=== PATIENT | female | born 1960 | race African-American/Black ===

== ENCOUNTER 2017-07-12 14:44 | Inpatient (IN) | payer MEDICAID ==
[~2017-07-12] VITALS: Ht 162.6 cm; Wt 62.9 kg
[~2017-07-12 14:44] MED LIST: ALBU8HFA IH; ARIP400S IM; BUPR-93 PO; DSS100 PO; OMEP20 PO
[2017-07-12] MEDS ORDERED: ZOLPIDEM TARTRATE 10 MG TABLET PO PRN (16:15)
[2017-07-12] MEDS ORDERED: QUEtiapine FUMARATE 100 MG TABLET PO PRN (16:15)
[2017-07-12 16:47] VITALS: BP 107/74
[2017-07-12 17:40] VITALS: BP 141/89
[2017-07-12] MEDS ORDERED: ALBUTEROL SULFATE HFA 90 MCG/PUFF 8 GM INHALER IH PRN (20:30)
[2017-07-13] MEDS ORDERED: MAGNESIUM HYDROXIDE SUSPENSION 30 ML UDCUP PO PRN (05:00)
[2017-07-13] MEDS ORDERED: ACETAMINOPHEN 325 MG TABLET PO PRN (05:00)
[2017-07-13] MEDS ORDERED: BENZOCAINE/MENTHOL LOZENGE MM PRN (05:00)
[2017-07-13] MEDS ORDERED: LOPERAMIDE HCL 2 MG CAPSULE PO PRN (05:00)
[2017-07-13] MEDS ORDERED: ONDANSETRON HCL 4 MG TABLET PO PRN (05:00)
[2017-07-13] MEDS ORDERED: CloNIDine HCL 0.1 MG TABLET PO PRN (05:00)
[2017-07-13] MEDS ORDERED: IBUPROFEN 600 MG TABLET PO PRN (05:00)
[2017-07-13] MEDS ORDERED: BACITRACIN 28.4 GM OINTMENT TP PRN (05:00)
[2017-07-13] MEDS ORDERED: PETROLATUM,WHITE 71 GM JELLY TP PRN (05:00)
[2017-07-13] MEDS ORDERED: MAG HYDROX/AL HYDROX/SIMETH ES 30 ML SUSPENSION UDCUP PO PRN (05:00)
[2017-07-13 06:29] VITALS: BP 111/77
[2017-07-13] MEDS ORDERED: GuaiFENesin/D-METHORPHAN/PHENYLEPH 5 ML LIQUID ORAL.SYG PO PRN (07:00)
[2017-07-13] MEDS ORDERED: FLUTICASONE PROPIONATE 50 MCG/SPRAY 16 GM NASAL SPRAY NASAL PRN (07:00)
[2017-07-13 08:31] VITALS: BP 106/59
[2017-07-13 08:42] LABS: BASOPHILS # (AUTO) 0.05 K/uL (0.00-0.20); BASOPHILS % (AUTO) 1.4 % (0.0-2.0); EOSINOPHILS # (AUTO) 0.05 K/uL (0.00-0.70); EOSINOPHILS % (AUTO) 1.36 % (1.0-6.0); HEMATOCRIT 42.1 % (36-46); HEMOGLOBIN 13.9 g/dL (12.0-16.0); LYMPHOCYTES # (AUTO) 1.6 K/uL (1.0-4.8); LYMPHOCYTES % (AUTO) 44.1 % (22.0-44.0); MEAN CORPUSCULAR HEMOGLOBIN 32.1 pg (26.0-34.0); MEAN CORPUSCULAR HGB CONC 33.1 G/dL (31.0-37.0); MEAN CORPUSCULAR VOLUME 97 fL (80-100); MONOCYTES # (AUTO) 0.3 K/uL (0.1-1.0); MONOCYTES % (AUTO) 6.8 % (2.0-9.0); NEUTROPHILS # (AUTO) 1.7 K/uL (1.8-7.7); NEUTROPHILS % (AUTO) 46.3 % (40.0-70.0); PLATELET COUNT (AUTO) 303 K/uL (150-450); RED BLOOD CELL COUNT(AUTO) 4.34 MIL/uL (4.00-5.20); RED CELL DISTRIBUTION WIDTH 14.9 % (11.5-14.5)
[2017-07-13 08:49] LABS: HEMOGLOBIN A1C 5.8 % (4.5-6.2)
[2017-07-13 09:02] LABS: ALANINE AMINOTRANSFERASE 22 U/L (12-78); ALBUMIN 3.6 g/dL (3.4-5.0); ALKALINE PHOSPHATASE 91 U/L (46-116); ANION GAP 5 mmol/L (8-16); ASPARTATE AMINOTRANSFERASE 20 U/L (15-37); BILIRUBIN,TOTAL 0.5 mg/dL (0.1-1.0); CALCIUM, TOTAL 9.5 mg/dL (8.8-10.5); CARBON DIOXIDE 32 mmol/L (22-29); CHLORIDE 104 mmol/L (98-107); CHOL/HDL RATIO 2.3 (3.9-5.7); CHOLESTEROL 158 mg/dL (131-200); CREATININE 0.88 mg/dL (0.60-1.30); FREE T4 (FREE THYROXINE) 0.89 ng/dL (0.76-1.46); GLOMERULAR FILTR. RATE CALC > 60 mL/min (>60); GLUCOSE,RANDOM 69 mg/dL (70-110); HDL CHOLESTEROL 70 mg/dL (40-60); LDL CHOL (CALC.) 78 mg/dL (0-130); POTASSIUM 3.6 mmol/L (3.5-5.1); SODIUM SERUM 141 mmol/L (136-145); THYROID STIMULATING HORMONE 1.58 uIU/mL (0.36-3.74); TOTAL PROTEIN, SERUM 8.6 g/dL (6.4-8.2); TRIGLYCERIDES 51 mg/dL (15-150); UREA NITROGEN, BLOOD 12 mg/dL (7-18)
[2017-07-13] MEDS: DiphenhydrAMINE HCL 25 MG CAPSULE PO PRN (09:21)
[2017-07-13] MEDS: LORazepam 2 MG TABLET PO PRN ×2 (09:21→17:29)
[2017-07-13] MEDS: OMEPRAZOLE 20 MG CAPSULE PO SCH (09:21)
[2017-07-13] MEDS: CHOLECALCIFEROL (VIT D3) 1,000 UNITS TABLET PO SCH (09:22)
[2017-07-13] MEDS: DOCUSATE SODIUM 100 MG CAPSULE PO SCH (09:22)
[2017-07-13 16:41] VITALS: BP 103/65
[2017-07-14 06:30] VITALS: BP 104/60
[2017-07-14] MEDS: DOCUSATE SODIUM 100 MG CAPSULE PO SCH (08:38)
[2017-07-14] MEDS: OMEPRAZOLE 20 MG CAPSULE PO SCH (08:38)
[2017-07-14] MEDS: CHOLECALCIFEROL (VIT D3) 1,000 UNITS TABLET PO SCH (08:39)
[2017-07-14] MEDS: LORazepam 2 MG TABLET PO PRN (08:45)
[2017-07-14 08:47] VITALS: BP 126/79
[2017-07-14 16:27] VITALS: BP 126/78
[2017-07-14] MEDS ORDERED: ARIPiprazole 10 MG TABLET PO SCH (18:45)
[2017-07-15 06:00] VITALS: BP 124/68
[2017-07-15] MEDS: CHOLECALCIFEROL (VIT D3) 1,000 UNITS TABLET PO SCH (08:36)
[2017-07-15] MEDS: OMEPRAZOLE 20 MG CAPSULE PO SCH (08:36)
[2017-07-15] MEDS: DOCUSATE SODIUM 100 MG CAPSULE PO SCH (08:36)
[2017-07-15] MEDS: BuPROPion HCL XL 150 MG ER TABLET PO SCH (08:38)
[2017-07-15] MEDS: DiphenhydrAMINE HCL 25 MG CAPSULE PO PRN (08:38)
[2017-07-15] MEDS: LORazepam 2 MG TABLET PO PRN (08:39)
[2017-07-15 16:11] VITALS: BP 115/67
[2017-07-15] MEDS: SODIUM CHLORIDE 0.65% 44 ML NASAL SPRAY NASAL SCH (16:25)
[2017-07-15] MEDS: OLANZapine 10 MG TABLET PO SCH (20:26)
[2017-07-16] MEDS: OMEPRAZOLE 20 MG CAPSULE PO SCH ×2 (09:00→09:32)
[2017-07-16] MEDS: LORATADINE 10 MG TABLET PO SCH (09:32)
[2017-07-16] MEDS: SODIUM CHLORIDE 0.65% 44 ML NASAL SPRAY NASAL SCH ×2 (09:32→16:48)
[2017-07-16] MEDS: DOCUSATE SODIUM 100 MG CAPSULE PO SCH (09:32)
[2017-07-16] MEDS: CHOLECALCIFEROL (VIT D3) 1,000 UNITS TABLET PO SCH (09:32)
[2017-07-16] MEDS: BuPROPion HCL XL 150 MG ER TABLET PO SCH (09:32)
[2017-07-16] MEDS: GuaiFENesin SR 600 MG ER TABLET PO SCH (09:32)
[2017-07-16] MEDS: MINERAL OIL/PETROLATUM 120 GM CREAM TP SCH (09:33)
[2017-07-16 18:20] VITALS: BP 138/81
[2017-07-16] MEDS: OLANZapine 10 MG TABLET PO SCH (20:40)
[2017-07-17 05:02] VITALS: BP 122/66
[2017-07-17] MEDS: DOCUSATE SODIUM 100 MG CAPSULE PO SCH (08:20)
[2017-07-17] MEDS: SODIUM CHLORIDE 0.65% 44 ML NASAL SPRAY NASAL SCH ×2 (08:20→16:27)
[2017-07-17] MEDS: OMEPRAZOLE 20 MG CAPSULE PO SCH (08:20)
[2017-07-17] MEDS: BuPROPion HCL XL 150 MG ER TABLET PO SCH (08:20)
[2017-07-17] MEDS: MINERAL OIL/PETROLATUM 120 GM CREAM TP SCH (08:21)
[2017-07-17] MEDS: GuaiFENesin SR 600 MG ER TABLET PO SCH (08:21)
[2017-07-17] MEDS: LORATADINE 10 MG TABLET PO SCH (08:21)
[2017-07-17] MEDS: CHOLECALCIFEROL (VIT D3) 1,000 UNITS TABLET PO SCH (08:21)
[2017-07-17 08:23] LABS: AMPHET/METH SCREEN,URINE NEGATIVE (NEGATIVE); BARBITURATE SCREEN, URINE NEGATIVE (NEGATIVE); BENZODIAZEPINES SCREEN,URINE NEGATIVE (NEGATIVE); CANNABINOID SCREEN,URINE POSITIVE (NEGATIVE); COCAINE SCREEN,URINE NEGATIVE (NEGATIVE); METHADONE SCREEN, URINE NEGATIVE (NEGATIVE); OPIATE SCREEN,URINE NEGATIVE (NEGATIVE); PHENCYCLIDINE SCREEN,URINE NEGATIVE (NEGATIVE)
[2017-07-17 09:04] VITALS: BP 124/83
[2017-07-17 09:22] LABS: APPEARANCE,URINE CLEAR (CLEAR); BILIRUBIN,URINE NEGATIVE (NEGATIVE); GLUCOSE, URINE (UA) NEGATIVE (NEGATIVE); KETONES,URINE NEGATIVE (NEGATIVE); LEUKOCYTE ESTERASE ,URINE SMALL (NEGATIVE); NITRATE,URINE NEGATIVE (NEGATIVE); OCCULT BLOOD,URINE TRACE (NEGATIVE); PROTEIN,URINE NEGATIVE (NEGATIVE); UROBILINOGEN,URINE 0.2 mg/dL (<=1.0)
[2017-07-17 09:35] LABS: BACTERIA,URINE None Seen /HPF (None Seen); SQUAMOUS EPITHELIAL CELL,UR Few /LPF (None Seen); WBC,URINE None Seen /HPF (0-5)
[2017-07-17] MEDS ORDERED: BuPROPion HCL XL 150 MG ER TABLET PO ONE (12:30)
[2017-07-17 16:21] VITALS: BP 118/74
[2017-07-17] MEDS: OLANZapine 10 MG TABLET PO SCH (20:07)
[2017-07-18] MEDS: SODIUM CHLORIDE 0.65% 44 ML NASAL SPRAY NASAL SCH ×2 (09:00→17:17)
[2017-07-18] MEDS: MINERAL OIL/PETROLATUM 120 GM CREAM TP SCH (09:00)
[2017-07-18 09:05] VITALS: BP 111/65
[2017-07-18] MEDS: DOCUSATE SODIUM 100 MG CAPSULE PO SCH (09:43)
[2017-07-18] MEDS: CHOLECALCIFEROL (VIT D3) 1,000 UNITS TABLET PO SCH (09:44)
[2017-07-18] MEDS: OMEPRAZOLE 20 MG CAPSULE PO SCH (09:44)
[2017-07-18] MEDS: BuPROPion HCL XL 150 MG ER TABLET PO SCH (09:44)
[2017-07-18] MEDS: LORATADINE 10 MG TABLET PO SCH (09:45)
[2017-07-18] MEDS: GuaiFENesin SR 600 MG ER TABLET PO SCH (09:57)
[2017-07-18 16:25] VITALS: BP 108/69
[2017-07-18] MEDS: LORazepam 2 MG TABLET PO PRN (17:28)
[2017-07-18] MEDS: OLANZapine 10 MG TABLET PO SCH (20:24)
[2017-07-19 06:40] VITALS: BP_SYST 117; BP_DIAS 72; BP_DIAS 93
[2017-07-19] MEDS: CHOLECALCIFEROL (VIT D3) 1,000 UNITS TABLET PO SCH (08:15)
[2017-07-19] MEDS: LORATADINE 10 MG TABLET PO SCH (08:16)
[2017-07-19] MEDS: DOCUSATE SODIUM 100 MG CAPSULE PO SCH (08:16)
[2017-07-19] MEDS: OMEPRAZOLE 20 MG CAPSULE PO SCH (08:16)
[2017-07-19] MEDS: BuPROPion HCL XL 150 MG ER TABLET PO SCH (08:16)
[2017-07-19] MEDS: SODIUM CHLORIDE 0.65% 44 ML NASAL SPRAY NASAL SCH (08:17)
[2017-07-19] MEDS: MINERAL OIL/PETROLATUM 120 GM CREAM TP SCH (08:17)
[2017-07-19 08:43] VITALS: BP 132/79
[2017-07-19] MEDS ORDERED: LORA10TA7 PO (09:02)
[2017-07-19] MEDS ORDERED: VITAD1000 PO (09:02)
[2017-07-19] MEDS ORDERED: OLAN10TA3 PO (09:02)
== END 2017-07-19 13:30 | disposition home or self-care (01) | DRG 750 ==
LOC: B3A 16:42 → B2S 07-17 20:58
DX: F20.0 Paranoid schizophrenia (principal); R45.851 Suicidal ideations; J44.9 Chronic obstructive pulmonary disease, unspecified; J30.9 Allergic rhinitis, unspecified; G47.00 Insomnia, unspecified; K21.9 Gastro-esophageal reflux disease without esophagitis; K59.00 Constipation, unspecified; M54.5 Low back pain; F17.200 Nicotine dependence, unspecified, uncomplicated; E55.9 Vitamin D deficiency, unspecified; Z91.5 Personal history of self-harm; Z88.8 Allergy status to other drugs, medicaments and biological substances; Z79.899 Other long term (current) drug therapy
CPT/HCPCS: 80307; 83036; 84439; 84443

== ENCOUNTER 2018-01-16 18:13 | Inpatient (IN) | payer MEDICAID ==
[~2018-01-16] VITALS: Ht 157.5 cm; Wt 68.0 kg
[~2018-01-16 18:13] MED LIST changes: -ALBU8HFA IH; -ARIP400S IM; +BUPR-47 PO; +OLAN10TA20 PO; +OLAN10TA3 PO; +VITAD1000 PO
[2018-01-16] MEDS ORDERED: ZOLPIDEM TARTRATE 10 MG TABLET PO PRN (19:15)
[2018-01-16] MEDS ORDERED: LORazepam 2 MG TABLET PO PRN (19:15)
[2018-01-16 19:16] VITALS: BP 113/78
[2018-01-16 19:55] VITALS: BP 123/83
[2018-01-16] MEDS ORDERED: PNEUMOCOCCAL VACCINE POLYVALENT 0.5 ML VIAL [PPSV23] IM ONE (20:00)
[2018-01-17 06:45] VITALS: BP 111/74
[2018-01-17 08:33] VITALS: BP 122/81
[2018-01-17 16:11] VITALS: BP 116/87
[2018-01-17] MEDS: OLANZapine 7.5 MG TABLET PO SCH (20:39)
[2018-01-17] MEDS ORDERED: LOPERAMIDE HCL 2 MG CAPSULE PO PRN (20:45)
[2018-01-17] MEDS ORDERED: MAG HYDROX/AL HYDROX/SIMETH ES 30 ML SUSPENSION UDCUP PO PRN (20:45)
[2018-01-17] MEDS ORDERED: PETROLATUM,WHITE 71 GM JELLY TP PRN (20:45)
[2018-01-17] MEDS ORDERED: ALBUTEROL SULFATE HFA 90 MCG/PUFF 8 GM INHALER IH PRN (20:45)
[2018-01-17] MEDS ORDERED: MAGNESIUM HYDROXIDE SUSPENSION 30 ML UDCUP PO PRN (20:45)
[2018-01-17] MEDS ORDERED: ONDANSETRON HCL 4 MG TABLET PO PRN (20:45)
[2018-01-17] MEDS ORDERED: IBUPROFEN 400 MG TABLET PO PRN (20:45)
[2018-01-17] MEDS ORDERED: CloNIDine HCL 0.1 MG TABLET PO PRN (20:45)
[2018-01-17] MEDS ORDERED: DOCUSATE SODIUM 100 MG CAPSULE PO PRN (20:45)
[2018-01-18 05:33] VITALS: BP 120/85
[2018-01-18] MEDS: NICOTINE 14 MG/24 HOUR PATCH TD SCH (09:24)
[2018-01-18] MEDS: BuPROPion HCL XL 150 MG ER TABLET PO SCH (09:24)
[2018-01-18 09:25] VITALS: BP 116/60
[2018-01-18 16:12] VITALS: BP 109/78
[2018-01-18] MEDS: OLANZapine 7.5 MG TABLET PO SCH (21:00)
[2018-01-19 08:23] VITALS: BP 114/82
[2018-01-19] MEDS: NICOTINE 14 MG/24 HOUR PATCH TD SCH (09:00)
[2018-01-19] MEDS: BuPROPion HCL XL 150 MG ER TABLET PO SCH (09:55)
[2018-01-19] MEDS: ACETAMINOPHEN 325 MG TABLET PO PRN (13:38)
[2018-01-19 13:40] VITALS: BP 116/85
[2018-01-19 16:18] VITALS: BP 112/60
[2018-01-19] MEDS: OLANZapine 10 MG TABLET PO SCH (21:02)
[2018-01-20 02:25] VITALS: BP 120/76
[2018-01-20] MEDS: NICOTINE 14 MG/24 HOUR PATCH TD SCH (08:28)
[2018-01-20] MEDS: BuPROPion HCL XL 150 MG ER TABLET PO SCH (08:28)
[2018-01-20 08:35] VITALS: BP 124/86
[2018-01-20] MEDS: OLANZapine 10 MG TABLET PO SCH (20:52)
[2018-01-21] MEDS: BuPROPion HCL XL 150 MG ER TABLET PO SCH (08:36)
[2018-01-21] MEDS: NICOTINE 14 MG/24 HOUR PATCH TD SCH (08:36)
[2018-01-21 15:59] VITALS: BP 113/87
[2018-01-21 16:00] VITALS: BP 113/87
[2018-01-21] MEDS: OLANZapine 10 MG TABLET PO SCH (20:01)
[2018-01-22] MEDS: NICOTINE 14 MG/24 HOUR PATCH TD SCH (08:30)
[2018-01-22] MEDS: BuPROPion HCL XL 150 MG ER TABLET PO SCH (08:30)
[2018-01-22 16:07] VITALS: BP 113/79
[2018-01-22] MEDS: OLANZapine 10 MG TABLET PO SCH (20:19)
[2018-01-23 02:30] VITALS: BP 100/73
[2018-01-23 08:13] VITALS: BP 113/83
[2018-01-23] MEDS: BuPROPion HCL XL 150 MG ER TABLET PO SCH (08:36)
[2018-01-23] MEDS: NICOTINE 14 MG/24 HOUR PATCH TD SCH (08:36)
[2018-01-23 10:07] VITALS: BP 128/75
[2018-01-23] MEDS: ACETAMINOPHEN 325 MG TABLET PO PRN (10:07)
[2018-01-23] MEDS ORDERED: OLAN20TA20 PO (14:57)
[2018-01-23] MEDS ORDERED: BUPR-93 PO (14:57)
== END 2018-01-23 15:25 | disposition home or self-care (01) | DRG 750 ==
LOC: B2S 19:14
PROVIDERS: ADMIT Psychiatry & Neurology Psychiatry; ATTEND Psychiatry & Neurology Psychiatry
DX: F25.0 Schizoaffective disorder, bipolar type (principal); R45.851 Suicidal ideations; Z59.0 Homelessness; F10.10 Alcohol abuse, uncomplicated; E55.9 Vitamin D deficiency, unspecified; F19.90 Other psychoactive substance use, unspecified, uncomplicated; J44.9 Chronic obstructive pulmonary disease, unspecified; K21.9 Gastro-esophageal reflux disease without esophagitis; K59.00 Constipation, unspecified; Z91.5 Personal history of self-harm; Z71.51 Drug abuse counseling and surveillance of drug abuser; Z71.41 Alcohol abuse counseling and surveillance of alcoholic; Z28.21 Immunization not carried out because of patient refusal; Z79.899 Other long term (current) drug therapy; Z88.8 Allergy status to other drugs, medicaments and biological substances

== ENCOUNTER 2019-01-16 07:38 | Emergency (ER) | payer OTHER ==
[~2019-01-16] VITALS: Ht 160 cm; Wt 63.6 kg
[~2019-01-16 07:38] MED LIST changes: -BUPR-47 PO; -DSS100 PO; -OLAN10TA20 PO; -OLAN10TA3 PO; +OLAN20TA20 PO; -OMEP20 PO; -VITAD1000 PO
[2019-01-16] MEDS ORDERED: GABA-531 PO (07:44)
[2019-01-16 09:14] LABS: BASOPHILS % (AUTO) 1.2 % (0.0-2.0); EOSINOPHILS % (AUTO) 1.3 % (1.0-6.0); HEMATOCRIT 37.7 % (36-46); HEMOGLOBIN 12.4 g/dL (12.0-16.0); LYMPHOCYTES # (AUTO) 1.4 K/uL (1.0-4.8); LYMPHOCYTES % (AUTO) 29.5 % (22.0-44.0); MEAN CORPUSCULAR HEMOGLOBIN 31.9 pg (26.0-34.0); MEAN CORPUSCULAR HGB CONC 32.9 G/dL (31.0-37.0); MEAN CORPUSCULAR VOLUME 97 fL (80-100); MONOCYTES # (AUTO) 0.4 K/uL (0.1-1.0); MONOCYTES % (AUTO) 7.9 % (2.0-9.0); NEUTROPHILS # (AUTO) 2.9 K/uL (1.8-7.7); NEUTROPHILS % (AUTO) 60.1 % (40.0-70.0); PLATELET COUNT (AUTO) 248 K/uL (150-450); RED BLOOD CELL COUNT(AUTO) 3.89 MIL/uL (4.00-5.20); RED CELL DISTRIBUTION WIDTH 14.4 % (11.5-14.5)
[2019-01-16 09:15] LABS: AMPHET/METH SCREEN,URINE NEGATIVE (NEGATIVE); BARBITURATE SCREEN, URINE NEGATIVE (NEGATIVE); BENZODIAZEPINES SCREEN,URINE NEGATIVE (NEGATIVE); CANNABINOID SCREEN,URINE NEGATIVE (NEGATIVE); COCAINE SCREEN,URINE NEGATIVE (NEGATIVE); METHADONE SCREEN, URINE NEGATIVE (NEGATIVE); OPIATE SCREEN,URINE NEGATIVE (NEGATIVE)
[2019-01-16] MEDS ORDERED: ACETAMINOPHEN 325 MG TABLET PO ONE (09:15)
[2019-01-16 09:16] LABS: PHENCYCLIDINE SCREEN,URINE NEGATIVE (NEGATIVE)
[2019-01-16 09:20] LABS: BILIRUBIN,URINE NEGATIVE (NEGATIVE); GLUCOSE, URINE (UA) NEGATIVE (NEGATIVE); KETONES,URINE NEGATIVE (NEGATIVE); LEUKOCYTE ESTERASE ,URINE TRACE (NEGATIVE); NITRATE,URINE NEGATIVE (NEGATIVE); OCCULT BLOOD,URINE MODERATE (NEGATIVE); PH,URINE 5.5 (5.0-8.0); PROTEIN,URINE NEGATIVE (NEGATIVE); UROBILINOGEN,URINE 0.2 mg/dL (<=1.0)
[2019-01-16 09:25] LABS: ANION GAP 7 mmol/L (8-16); CALCIUM, TOTAL 9.4 mg/dL (8.8-10.5); CARBON DIOXIDE 29 mmol/L (22-29); CHLORIDE 106 mmol/L (98-107); CREATININE 0.92 mg/dL (0.60-1.30); GLOMERULAR FILTR. RATE CALC > 60 mL/min (>60); GLUCOSE,RANDOM 73 mg/dL (70-110); POTASSIUM 3.6 mmol/L (3.5-5.1); SODIUM SERUM 142 mmol/L (136-145); UREA NITROGEN, BLOOD 13 mg/dL (7-18)
[2019-01-16 09:31] LABS: ALANINE AMINOTRANSFERASE 20 U/L (12-78); ALBUMIN 3.3 g/dL (3.4-5.0); ALKALINE PHOSPHATASE 84 U/L (46-116); ASPARTATE AMINOTRANSFERASE 17 U/L (15-37); BILIRUBIN,TOTAL 0.3 mg/dL (0.1-1.0); TOTAL PROTEIN, SERUM 7.8 g/dL (6.4-8.2)
[2019-01-16 09:45] LABS: APPEARANCE,URINE HAZY (CLEAR)
[2019-01-16 09:46] LABS: BACTERIA,URINE Moderate /HPF (None Seen)
[2019-01-16] MEDS ORDERED: NITROFURANTOIN/NITROFURAN MAC 100 MG CAPSULE [MACROBID] PO ONE (10:15)
[2019-01-16 11:03] VITALS: BP 127/79
== END 2019-01-16 11:06 | disposition home or self-care (01) ==
LOC: EMS 07:39
DX: S16.1XXA Strain of muscle, fascia and tendon at neck level, initial encounter (principal); S00.83XA Contusion of other part of head, initial encounter; R30.0 Dysuria; F20.9 Schizophrenia, unspecified; F43.10 Post-traumatic stress disorder, unspecified; Z79.899 Other long term (current) drug therapy; Z88.5 Allergy status to narcotic agent; Z88.8 Allergy status to other drugs, medicaments and biological substances; Y08.89XA Assault by other specified means, initial encounter; Y93.89 Activity, other specified; Y92.89 Other specified places as the place of occurrence of the external cause; Y99.8 Other external cause status
CPT/HCPCS: 36415; 80053; 80307; 81001; 85025; 87077; 87086; 87186; 99284; G0480

== ENCOUNTER 2019-04-22 06:41 | Emergency (ER) | payer MEDICAID, OTHER ==
[~2019-04-22] VITALS: Ht 160 cm; Wt 63.6 kg
[~2019-04-22 06:41] MED LIST changes: +GABA-531 PO
[2019-04-22 07:10] LABS: GLUCOSE,POINT OF CARE 77 MG/DL (70-110)
[2019-04-22] MEDS ORDERED: ALBUTEROL SULFATE 2.5 MG/0.5 ML NEB SOLUTION NEB ONE (07:45)
[2019-04-22] MEDS ORDERED: IPRATROPIUM BROMIDE 0.5 MG/2.5 ML NEB SOLUTION NEB ONE (07:45)
[2019-04-22 08:43] VITALS: BP 128/87
== END 2019-04-22 09:05 | disposition home or self-care (01) ==
LOC: EMS 06:42
DX: J40 Bronchitis, not specified as acute or chronic (principal); E11.9 Type 2 diabetes mellitus without complications; F20.9 Schizophrenia, unspecified; F17.210 Nicotine dependence, cigarettes, uncomplicated; Z79.899 Other long term (current) drug therapy; Z88.5 Allergy status to narcotic agent; Z88.8 Allergy status to other drugs, medicaments and biological substances
CPT/HCPCS: 94640; 99406

== ENCOUNTER 2019-05-05 09:20 | Emergency (ER) | payer MEDICAID ==
[~2019-05-05] VITALS: Ht 160 cm; Wt 0.6 kg
[2019-05-05] MEDS ORDERED: CARI1.5C PO (09:34)
[2019-05-05] MEDS ORDERED: PROZ10 PO (09:34)
[2019-05-05] MEDS ORDERED: ALBUTEROL SULFATE 5 MG/ML 20 ML NEB SOLN [BULK] NEB ONE (10:15)
[2019-05-05] MEDS ORDERED: IPRATROPIUM BROMIDE 0.5 MG/2.5 ML NEB SOLUTION NEB ONE (10:15)
[2019-05-05] MEDS ORDERED: ALBUTEROL SULFATE HFA 90 MCG/PUFF 8 GM INHALER IH ONE (11:45)
[2019-05-05 12:30] VITALS: BP 122/79
== END 2019-05-05 12:50 | disposition home or self-care (01) ==
LOC: EMS 09:22
DX: J40 Bronchitis, not specified as acute or chronic (principal); E11.9 Type 2 diabetes mellitus without complications; F20.9 Schizophrenia, unspecified; F17.210 Nicotine dependence, cigarettes, uncomplicated; F43.10 Post-traumatic stress disorder, unspecified; Z79.899 Other long term (current) drug therapy; Z88.6 Allergy status to analgesic agent; Z88.8 Allergy status to other drugs, medicaments and biological substances
CPT/HCPCS: 94640; 94644; 99406; J3535

== ENCOUNTER 2019-05-21 17:51 | Inpatient (IN) | payer MEDICAID ==
[~2019-05-21] VITALS: Ht 160 cm; Wt 73.8 kg
[~2019-05-21 17:51] MED LIST changes: -BUPR-93 PO; +CARI1.5C PO; +PROZ10 PO
[2019-05-21] MEDS ORDERED: ZOLPIDEM TARTRATE 10 MG TABLET PO PRN (18:30)
[2019-05-21] MEDS ORDERED: LORazepam 2 MG TABLET PO PRN (18:30)
[2019-05-21] MEDS ORDERED: INFLUENZA VIRUS VACCINE QVS 2019-20 (3YR+)/PF 60 MCG/0.5 ML SYRINGE IM ONE (18:45)
[2019-05-21] MEDS ORDERED: PNEUMOCOCCAL VACCINE POLYVALENT 0.5 ML VIAL [PPSV23] IM ONE (18:45)
[2019-05-21 19:49] VITALS: BP 107/64
[2019-05-22 07:21] VITALS: BP 102/72
[2019-05-22 07:39] LABS: BASOPHILS % (AUTO) 0.8 % (0.0-2.0); EOSINOPHILS % (AUTO) 2.4 % (1.0-6.0); HEMATOCRIT 35.8 % (36-46); HEMOGLOBIN 12.2 g/dL (12.0-16.0); LYMPHOCYTES # (AUTO) 1.5 K/uL (1.0-4.8); LYMPHOCYTES % (AUTO) 41.9 % (22.0-44.0); MEAN CORPUSCULAR HEMOGLOBIN 32.8 pg (26.0-34.0); MEAN CORPUSCULAR VOLUME 97 fL (80-100); MONOCYTES # (AUTO) 0.3 K/uL (0.1-1.0); MONOCYTES % (AUTO) 9.3 % (2.0-9.0); NEUTROPHILS # (AUTO) 1.6 K/uL (1.8-7.7); NEUTROPHILS % (AUTO) 45.6 % (40.0-70.0); PLATELET COUNT (AUTO) 224 K/uL (150-450); RED CELL DISTRIBUTION WIDTH 13.8 % (11.5-14.5)
[2019-05-22 07:53] LABS: HEMOGLOBIN A1C 5.8 % (4.5-6.2)
[2019-05-22 08:07] LABS: ALANINE AMINOTRANSFERASE 31 U/L (12-78); ALBUMIN 3.1 g/dL (3.4-5.0); ALKALINE PHOSPHATASE 68 U/L (46-116); ANION GAP 6 mmol/L (8-16); ASPARTATE AMINOTRANSFERASE 24 U/L (15-37); BILIRUBIN,TOTAL 0.5 mg/dL (0.1-1.0); CALCIUM, TOTAL 8.2 mg/dL (8.8-10.5); CARBON DIOXIDE 29 mmol/L (22-29); CHLORIDE 107 mmol/L (98-107); CHOL/HDL RATIO 2.4 (3.9-5.7); CHOLESTEROL 149 mg/dL (131-200); CREATININE 0.91 mg/dL (0.60-1.30); FREE T4 (FREE THYROXINE) 1.24 ng/dL (0.76-1.46); GLOMERULAR FILTR. RATE CALC > 60 mL/min (>60); GLUCOSE,RANDOM 78 mg/dL (70-110); HDL CHOLESTEROL 62 mg/dL (40-60); LDL CHOL (CALC.) 78 mg/dL (0-130); POTASSIUM 3.8 mmol/L (3.5-5.1); SODIUM SERUM 142 mmol/L (136-145); THYROID STIMULATING HORMONE 1.74 uIU/mL (0.36-3.74); TOTAL PROTEIN, SERUM 6.4 g/dL (6.4-8.2); TRIGLYCERIDES 46 mg/dL (15-150); UREA NITROGEN, BLOOD 15 mg/dL (7-18)
[2019-05-22] MEDS: BuPROPion HCL XL 150 MG ER TABLET PO SCH (10:36)
[2019-05-22] MEDS ORDERED: MAGNESIUM HYDROXIDE SUSPENSION 30 ML UDCUP PO PRN (12:00)
[2019-05-22] MEDS ORDERED: ACETAMINOPHEN 325 MG TABLET PO PRN (12:00)
[2019-05-22] MEDS ORDERED: ONDANSETRON HCL 4 MG TABLET PO PRN (12:00)
[2019-05-22] MEDS ORDERED: GuaiFENesin/D-METHORPHAN [SUGAR-FREE] 200-20MG/10 ML SYRUP UDCUP PO PRN (12:00)
[2019-05-22] MEDS ORDERED: IBUPROFEN 400 MG TABLET PO PRN (12:00)
[2019-05-22] MEDS ORDERED: CloNIDine HCL 0.1 MG TABLET PO PRN (12:00)
[2019-05-22] MEDS ORDERED: LOPERAMIDE HCL 2 MG CAPSULE PO PRN (12:00)
[2019-05-22] MEDS ORDERED: MAG HYDROX/AL HYDROX/SIMETH ES 30 ML SUSPENSION UDCUP PO PRN (12:00)
[2019-05-22] MEDS ORDERED: PETROLATUM,WHITE 28 GM JELLY TP PRN (12:00)
[2019-05-22] MEDS ORDERED: ALBUTEROL SULFATE HFA 90 MCG/PUFF 8 GM INHALER IH PRN (12:00)
[2019-05-22] MEDS ORDERED: NICOTINE 14 MG/24 HOUR PATCH TD PRN (12:00)
[2019-05-22] MEDS ORDERED: DOCUSATE SODIUM 100 MG CAPSULE PO PRN (12:00)
[2019-05-22] MEDS: GABAPENTIN 300 MG CAPSULE PO SCH ×2 (12:26→17:06)
[2019-05-22 16:02] VITALS: BP 124/82
[2019-05-23 06:09] VITALS: BP 119/80
[2019-05-23] MEDS: GABAPENTIN 300 MG CAPSULE PO SCH ×2 (08:02→13:00)
[2019-05-23] MEDS: BuPROPion HCL XL 150 MG ER TABLET PO SCH (08:02)
[2019-05-23] MEDS ORDERED: OLANZapine 5 MG TABLET PO SCH (09:00)
[2019-05-23] MEDS ORDERED: OLAN5TAB27 PO (14:17)
[2019-05-23] MEDS ORDERED: BUPR-93 PO (14:17)
[2019-05-23] MEDS ORDERED: GABA-531 PO (14:17)
== END 2019-05-23 15:56 | disposition home or self-care (01) | DRG 750 ==
LOC: B3A 18:26
PROVIDERS: ADMIT Psychiatry & Neurology Psychiatry; ATTEND Psychiatry & Neurology Psychiatry
DX: F20.9 Schizophrenia, unspecified (principal); R45.851 Suicidal ideations; Z59.0 Homelessness; K21.9 Gastro-esophageal reflux disease without esophagitis; J44.9 Chronic obstructive pulmonary disease, unspecified; E55.9 Vitamin D deficiency, unspecified; F10.10 Alcohol abuse, uncomplicated; K59.00 Constipation, unspecified; Z91.5 Personal history of self-harm
CPT/HCPCS: 83036; 84439; 84443

== ENCOUNTER 2019-07-09 12:17 | Emergency (ER) | payer MEDICAID ==
[~2019-07-09] VITALS: Ht 165.1 cm; Wt 70.4 kg
[~2019-07-09 12:17] MED LIST changes: +BUPR-93 PO; -CARI1.5C PO; -OLAN20TA20 PO; +OLAN5TAB27 PO; -PROZ10 PO
[2019-07-09 12:52] LABS: BASOPHILS % (AUTO) 1.4 % (0.0-2.0); EOSINOPHILS % (AUTO) 0.6 % (1.0-6.0); HEMATOCRIT 43.4 % (36-46); HEMOGLOBIN 14.5 g/dL (12.0-16.0); LYMPHOCYTES % (AUTO) 21.1 % (22.0-44.0); MEAN CORPUSCULAR HEMOGLOBIN 32.4 pg (26.0-34.0); MEAN CORPUSCULAR HGB CONC 33.5 G/dL (31.0-37.0); MEAN CORPUSCULAR VOLUME 97 fL (80-100); MONOCYTES # (AUTO) 0.3 K/uL (0.1-1.0); MONOCYTES % (AUTO) 6.1 % (2.0-9.0); NEUTROPHILS # (AUTO) 3.5 K/uL (1.8-7.7); NEUTROPHILS % (AUTO) 70.8 % (40.0-70.0); PLATELET COUNT (AUTO) 270 K/uL (150-450); RED BLOOD CELL COUNT(AUTO) 4.49 MIL/uL (4.00-5.20); RED CELL DISTRIBUTION WIDTH 14.5 % (11.5-14.5)
[2019-07-09 13:19] LABS: ALANINE AMINOTRANSFERASE 54 U/L (12-78); ALBUMIN 3.5 g/dL (3.4-5.0); ALKALINE PHOSPHATASE 82 U/L (46-116); ANION GAP 11 mmol/L (8-16); ASPARTATE AMINOTRANSFERASE 34 U/L (15-37); BILIRUBIN,TOTAL 0.8 mg/dL (0.1-1.0); CALCIUM, TOTAL 9.3 mg/dL (8.8-10.5); CARBON DIOXIDE 26 mmol/L (22-29); CHLORIDE 103 mmol/L (98-107); CREATININE 1.12 mg/dL (0.60-1.30); GLOMERULAR FILTR. RATE CALC > 60 mL/min (>60); GLUCOSE,RANDOM 100 mg/dL (70-110); HCG,QUANTITATIVE 4 mIU/mL (0-6); SODIUM SERUM 140 mmol/L (136-145); TOTAL PROTEIN, SERUM 8.1 g/dL (6.4-8.2); UREA NITROGEN, BLOOD 10 mg/dL (7-18)
[2019-07-09 13:25] LABS: POTASSIUM 2.9 mmol/L (3.5-5.1)
[2019-07-09] MEDS ORDERED: POTASSIUM CHLORIDE 20 MEQ ER TABLET PO ONE (13:30)
[2019-07-09] MEDS ORDERED: AZITHROMYCIN 250 MG TABLET PO ONE (14:00)
[2019-07-09] MEDS ORDERED: ALBUTEROL SULFATE 2.5 MG/0.5 ML NEB SOLUTION NEB ONE (14:30)
[2019-07-09] MEDS ORDERED: IPRATROPIUM BROMIDE 0.5 MG/2.5 ML NEB SOLUTION NEB ONE (14:30)
[2019-07-09 15:01] VITALS: BP 128/82
== END 2019-07-09 15:03 | disposition home or self-care (01) ==
LOC: EMS 12:19
DX: J18.9 Pneumonia, unspecified organism (principal); F20.9 Schizophrenia, unspecified; E11.9 Type 2 diabetes mellitus without complications; F17.210 Nicotine dependence, cigarettes, uncomplicated; Z79.899 Other long term (current) drug therapy; Z88.8 Allergy status to other drugs, medicaments and biological substances; Z88.5 Allergy status to narcotic agent
CPT/HCPCS: 36415; 71046; 80053; 84702; 85025; 94640; 99284; 99406; G0480

== ENCOUNTER 2019-08-21 16:27 | Inpatient (IN) | payer MEDICAID ==
[~2019-08-21] VITALS: Ht 160 cm; Wt 67.4 kg
[2019-08-21] MEDS ORDERED: ZOLPIDEM TARTRATE 10 MG TABLET PO PRN (17:30)
[2019-08-21] MEDS ORDERED: QUEtiapine FUMARATE 100 MG TABLET PO PRN (17:30)
[2019-08-21 17:54] VITALS: BP 105/80
[2019-08-21 18:05] VITALS: BP 105/80
[2019-08-21] MEDS ORDERED: PNEUMOCOCCAL VACCINE POLYVALENT 0.5 ML VIAL [PPSV23] IM ONE (18:30)
[2019-08-21 18:43] VITALS: BP 116/60
[2019-08-22 00:08] VITALS: BP 111/67
[2019-08-22 08:03] VITALS: BP 105/67
[2019-08-22 08:14] LABS: EOSINOPHILS % (AUTO) 1.6 % (1.0-6.0); HEMATOCRIT 39.6 % (36-46); HEMOGLOBIN 13.1 g/dL (12.0-16.0); LYMPHOCYTES # (AUTO) 1.5 K/uL (1.0-4.8); LYMPHOCYTES % (AUTO) 30.1 % (22.0-44.0); MEAN CORPUSCULAR HEMOGLOBIN 32.4 pg (26.0-34.0); MEAN CORPUSCULAR HGB CONC 33.2 G/dL (31.0-37.0); MEAN CORPUSCULAR VOLUME 98 fL (80-100); MONOCYTES # (AUTO) 0.4 K/uL (0.1-1.0); NEUTROPHILS % (AUTO) 59.3 % (40.0-70.0); PLATELET COUNT (AUTO) 235 K/uL (150-450); RED BLOOD CELL COUNT(AUTO) 4.05 MIL/uL (4.00-5.20); RED CELL DISTRIBUTION WIDTH 14.4 % (11.5-14.5)
[2019-08-22 08:46] LABS: ALANINE AMINOTRANSFERASE 39 U/L (12-78); ALBUMIN 3.5 g/dL (3.4-5.0); ALKALINE PHOSPHATASE 82 U/L (46-116); ANION GAP 8 mmol/L (8-16); ASPARTATE AMINOTRANSFERASE 32 U/L (15-37); BILIRUBIN,TOTAL 0.6 mg/dL (0.1-1.0); CALCIUM, TOTAL 9.2 mg/dL (8.8-10.5); CARBON DIOXIDE 26 mmol/L (22-29); CHLORIDE 102 mmol/L (98-107); CHOL/HDL RATIO 2.5 (3.9-5.7); CHOLESTEROL 157 mg/dL (131-200); CREATININE 1.07 mg/dL (0.60-1.30); FREE T4 (FREE THYROXINE) 1.23 ng/dL (0.76-1.46); GLOMERULAR FILTR. RATE CALC > 60 mL/min (>60); GLUCOSE,RANDOM 72 mg/dL (70-110); HDL CHOLESTEROL 63 mg/dL (40-60); LDL CHOL (CALC.) 84 mg/dL (0-130); POTASSIUM 4.7 mmol/L (3.5-5.1); SODIUM SERUM 136 mmol/L (136-145); THYROID STIMULATING HORMONE 1.86 uIU/mL (0.36-3.74); TOTAL PROTEIN, SERUM 7.8 g/dL (6.4-8.2); TRIGLYCERIDES 49 mg/dL (15-150); UREA NITROGEN, BLOOD 33 mg/dL (7-18)
[2019-08-22] MEDS: LORazepam 2 MG TABLET PO PRN ×2 (09:07→19:15)
[2019-08-22] MEDS: BACITRACIN 28.4 GM OINTMENT TP SCH ×2 (09:07→17:01)
[2019-08-22] MEDS ORDERED: DOCUSATE SODIUM 100 MG CAPSULE PO PRN (09:45)
[2019-08-22] MEDS ORDERED: GuaiFENesin/D-METHORPHAN [SUGAR-FREE] 200-20MG/10 ML SYRUP UDCUP PO PRN (09:45)
[2019-08-22] MEDS ORDERED: ONDANSETRON HCL 4 MG TABLET PO PRN (09:45)
[2019-08-22] MEDS ORDERED: NICOTINE 14 MG/24 HOUR PATCH TD PRN (09:45)
[2019-08-22] MEDS ORDERED: ALBUTEROL SULFATE HFA 90 MCG/PUFF 8 GM INHALER IH PRN (09:45)
[2019-08-22] MEDS ORDERED: MAGNESIUM HYDROXIDE SUSPENSION 30 ML UDCUP PO PRN (09:45)
[2019-08-22] MEDS ORDERED: CloNIDine HCL 0.1 MG TABLET PO PRN (09:45)
[2019-08-22] MEDS ORDERED: LOPERAMIDE HCL 2 MG CAPSULE PO PRN (09:45)
[2019-08-22] MEDS ORDERED: IBUPROFEN 400 MG TABLET PO PRN (09:45)
[2019-08-22] MEDS ORDERED: MAG HYDROX/AL HYDROX/SIMETH ES 30 ML SUSPENSION UDCUP PO PRN (09:45)
[2019-08-22] MEDS ORDERED: PETROLATUM,WHITE 28 GM JELLY TP PRN (09:45)
[2019-08-22] MEDS ORDERED: ACETAMINOPHEN 325 MG TABLET PO PRN (09:45)
[2019-08-22 16:34] VITALS: BP 106/72
[2019-08-22] MEDS: GABAPENTIN 300 MG CAPSULE PO SCH (17:01)
[2019-08-22] MEDS: LURASIDONE HCL 40 MG TABLET PO SCH (22:10)
[2019-08-23 00:41] VITALS: BP 110/80
[2019-08-23 08:12] VITALS: BP 127/77
[2019-08-23] MEDS: GABAPENTIN 300 MG CAPSULE PO SCH ×3 (08:41→16:03)
[2019-08-23] MEDS: BACITRACIN 28.4 GM OINTMENT TP SCH ×2 (09:00→16:06)
[2019-08-23] MEDS: DiphenhydrAMINE HCL 25 MG CAPSULE PO PRN ×2 (16:02→21:24)
[2019-08-23] MEDS: SPIRONOLACTONE 25 MG TABLET PO SCH (16:03)
[2019-08-23] MEDS: DICLOFENAC SODIUM 75 MG DR TABLET PO SCH (16:03)
[2019-08-23] MEDS: LURASIDONE HCL 40 MG TABLET PO SCH (16:03)
[2019-08-23] MEDS: CARVEDILOL 3.125 MG TABLET PO SCH (16:03)
[2019-08-23 16:05] VITALS: BP 108/82
[2019-08-23] MEDS: ATORVASTATIN CALCIUM 20 MG TABLET PO SCH (21:24)
[2019-08-24] MEDS: DiphenhydrAMINE HCL 25 MG CAPSULE PO PRN ×2 (05:37→12:14)
[2019-08-24 08:03] VITALS: BP 104/61
[2019-08-24] MEDS: GABAPENTIN 300 MG CAPSULE PO SCH ×3 (08:08→16:42)
[2019-08-24] MEDS: BACITRACIN 28.4 GM OINTMENT TP SCH ×2 (08:08→16:43)
[2019-08-24] MEDS: ASPIRIN 81 MG CHEWABLE TABLET PO SCH (08:08)
[2019-08-24] MEDS: DICLOFENAC SODIUM 75 MG DR TABLET PO SCH ×2 (08:08→16:42)
[2019-08-24] MEDS: SPIRONOLACTONE 25 MG TABLET PO SCH ×2 (09:00→16:43)
[2019-08-24] MEDS: CARVEDILOL 3.125 MG TABLET PO SCH ×2 (09:00→16:43)
[2019-08-24] MEDS: LOSARTAN POTASSIUM 25 MG TABLET PO SCH (09:00)
[2019-08-24 09:43] VITALS: BP 102/62
[2019-08-24 16:06] VITALS: BP 110/79
[2019-08-24] MEDS: LURASIDONE HCL 40 MG TABLET PO SCH (16:42)
[2019-08-24] MEDS: ATORVASTATIN CALCIUM 20 MG TABLET PO SCH (20:37)
[2019-08-25 00:25] VITALS: BP 100/77
[2019-08-25] MEDS: DiphenhydrAMINE HCL 25 MG CAPSULE PO PRN ×2 (06:34→17:03)
[2019-08-25 08:05] VITALS: BP 110/67
[2019-08-25] MEDS: LOSARTAN POTASSIUM 25 MG TABLET PO SCH (08:24)
[2019-08-25] MEDS: DICLOFENAC SODIUM 75 MG DR TABLET PO SCH ×2 (08:24→17:02)
[2019-08-25] MEDS: GABAPENTIN 300 MG CAPSULE PO SCH ×3 (08:24→17:02)
[2019-08-25] MEDS: ASPIRIN 81 MG CHEWABLE TABLET PO SCH (08:24)
[2019-08-25] MEDS: CARVEDILOL 3.125 MG TABLET PO SCH ×2 (08:24→17:00)
[2019-08-25] MEDS: SPIRONOLACTONE 25 MG TABLET PO SCH ×2 (08:24→17:00)
[2019-08-25] MEDS: BACITRACIN 28.4 GM OINTMENT TP SCH ×2 (08:27→17:03)
[2019-08-25] MEDS: LURASIDONE HCL 40 MG TABLET PO SCH (17:02)
[2019-08-25 17:24] VITALS: BP 97/74
[2019-08-25] MEDS: ATORVASTATIN CALCIUM 20 MG TABLET PO SCH (20:32)
[2019-08-26 06:45] VITALS: BP 99/69
[2019-08-26] MEDS: DICLOFENAC SODIUM 75 MG DR TABLET PO SCH ×2 (08:41→16:59)
[2019-08-26] MEDS: GABAPENTIN 300 MG CAPSULE PO SCH ×3 (08:42→16:59)
[2019-08-26] MEDS: ASPIRIN 81 MG CHEWABLE TABLET PO SCH (08:42)
[2019-08-26] MEDS: LOSARTAN POTASSIUM 25 MG TABLET PO SCH (08:44)
[2019-08-26] MEDS: CARVEDILOL 3.125 MG TABLET PO SCH (08:44)
[2019-08-26] MEDS: SPIRONOLACTONE 25 MG TABLET PO SCH ×2 (08:44→16:59)
[2019-08-26 08:46] VITALS: BP 92/64
[2019-08-26] MEDS: BACITRACIN 28.4 GM OINTMENT TP SCH ×2 (08:53→16:59)
[2019-08-26] MEDS: DiphenhydrAMINE HCL 25 MG CAPSULE PO PRN (09:10)
[2019-08-26 16:12] VITALS: BP 96/69
[2019-08-26] MEDS: LURASIDONE HCL 40 MG TABLET PO SCH (16:59)
[2019-08-26] MEDS: ATORVASTATIN CALCIUM 20 MG TABLET PO SCH (20:38)
[2019-08-27 00:55] VITALS: BP 105/73
[2019-08-27 08:36] VITALS: BP 96/57
[2019-08-27] MEDS: DICLOFENAC SODIUM 75 MG DR TABLET PO SCH (08:48)
[2019-08-27] MEDS: GABAPENTIN 300 MG CAPSULE PO SCH (08:49)
[2019-08-27] MEDS: ASPIRIN 81 MG CHEWABLE TABLET PO SCH (08:49)
[2019-08-27] MEDS: CARVEDILOL 3.125 MG TABLET PO SCH (09:00)
[2019-08-27] MEDS: LOSARTAN POTASSIUM 25 MG TABLET PO SCH (09:00)
[2019-08-27] MEDS: SPIRONOLACTONE 25 MG TABLET PO SCH (09:00)
[2019-08-27] MEDS: DiphenhydrAMINE HCL 25 MG CAPSULE PO PRN (09:29)
[2019-08-27] MEDS: BACITRACIN 28.4 GM OINTMENT TP SCH (09:30)
[2019-08-27] MEDS ORDERED: GABA-531 PO (09:43)
[2019-08-27] MEDS ORDERED: LURA40 PO (09:43)
[2019-08-27] MEDS ORDERED: ATOR20TA86 PO (10:13)
[2019-08-27] MEDS ORDERED: CARV3 PO (10:14)
[2019-08-27] MEDS ORDERED: LOSA25TA71 PO (10:15)
[2019-08-27] MEDS ORDERED: SPIR25 PO (10:15)
[2019-08-27] MEDS ORDERED: ASPI-728 PO (10:16)
== END 2019-08-27 11:10 | disposition home or self-care (01) | DRG 750 ==
LOC: B2S 17:25
PROC: 3E0234Z Introduction of Serum, Toxoid and Vaccine into Muscle, Percutaneous Approach (ICD-10-PCS; principal; 2019-08-21)
DX: F25.1 Schizoaffective disorder, depressive type (principal); R45.851 Suicidal ideations; Z59.0 Homelessness; E55.9 Vitamin D deficiency, unspecified; F12.10 Cannabis abuse, uncomplicated; F15.10 Other stimulant abuse, uncomplicated; I10 Essential (primary) hypertension; J44.9 Chronic obstructive pulmonary disease, unspecified; K21.9 Gastro-esophageal reflux disease without esophagitis; K59.00 Constipation, unspecified; R73.03 Prediabetes; Z79.899 Other long term (current) drug therapy; Z91.5 Personal history of self-harm; Z23 Encounter for immunization
CPT/HCPCS: 83036; 84439; 84443; 87081; J3535

== ENCOUNTER 2019-11-23 12:18 | Inpatient (IN) | payer MEDICAID ==
[~2019-11-23] VITALS: Ht 162.6 cm; Wt 61.1 kg
[~2019-11-23 12:18] MED LIST changes: +ASPI-728 PO; +ATOR20TA86 PO; -BUPR-93 PO; +CARV3 PO; +LOSA25TA71 PO; +LURA40TA2 PO; -OLAN5TAB27 PO; +SPIR25 PO
[2019-11-23] MEDS ORDERED: ALBU8.5H8 IH (12:35)
[2019-11-23] MEDS ORDERED: IPRATROPIUM BROMIDE 0.5 MG/2.5 ML NEB SOLUTION NEB ONE (12:45)
[2019-11-23] MEDS ORDERED: MethylPREDNISolone SOD SUCC 125 MG/2 ML VIAL IVP ONE (12:45)
[2019-11-23] MEDS ORDERED: ALBUTEROL SULFATE 5 MG/ML 20 ML NEB SOLN [BULK] NEB ONE (12:45)
[2019-11-23 13:04] LABS: EOSINOPHILS % (AUTO) 0.8 % (1.0-6.0); HEMATOCRIT 37.7 % (36-46); HEMOGLOBIN 12.5 g/dL (12.0-16.0); LYMPHOCYTES # (AUTO) 0.9 K/uL (1.0-4.8); LYMPHOCYTES % (AUTO) 24.2 % (22.0-44.0); MEAN CORPUSCULAR HEMOGLOBIN 32.8 pg (26.0-34.0); MEAN CORPUSCULAR HGB CONC 33.2 G/dL (31.0-37.0); MEAN CORPUSCULAR VOLUME 99 fL (80-100); MONOCYTES # (AUTO) 0.2 K/uL (0.1-1.0); MONOCYTES % (AUTO) 5.9 % (2.0-9.0); NEUTROPHILS # (AUTO) 2.6 K/uL (1.8-7.7); NEUTROPHILS % (AUTO) 68.1 % (40.0-70.0); PLATELET COUNT (AUTO) 232 K/uL (150-450); RED BLOOD CELL COUNT(AUTO) 3.81 MIL/uL (4.00-5.20); RED CELL DISTRIBUTION WIDTH 15.6 % (11.5-14.5)
[2019-11-23] MEDS ORDERED: GABA-1181 PO (13:21)
[2019-11-23] MEDS ORDERED: CefTRIAXone 1 GM/DEXTROSE 50 ML IV ONE (13:30)
[2019-11-23] MEDS ORDERED: AZITHROMYCIN 500 MG/NS 250 ML IV ONE (13:30)
[2019-11-23] MEDS ORDERED: FUROSEMIDE 40 MG/4 ML VIAL IVP ONE (13:30)
[2019-11-23 13:33] LABS: ALBUMIN 3.4 g/dL (3.4-5.0); BILIRUBIN,TOTAL 1.6 mg/dL (0.1-1.0); CALCIUM, TOTAL 8.9 mg/dL (8.8-10.5); CREATININE 1.19 mg/dL (0.60-1.30); TOTAL PROTEIN, SERUM 7.5 g/dL (6.4-8.2)
[2019-11-23 13:34] LABS: POTASSIUM 2.9 mmol/L (3.5-5.1)
[2019-11-23] MEDS ORDERED: POTASSIUM CHLORIDE 20 MEQ ER TABLET PO ONE (13:45)
[2019-11-23] MEDS ORDERED: POTASSIUM CHLORIDE 20 MEQ ER TABLET PO PRN (14:00)
[2019-11-23] MEDS ORDERED: ACETAMINOPHEN 325 MG TABLET PO PRN ×2 (14:00)
[2019-11-23] MEDS ORDERED: ONDANSETRON HCL 4 MG/2 ML VIAL IVP PRN (14:00)
[2019-11-23] MEDS ORDERED: ALBUTEROL SULFATE 2.5 MG/0.5 ML NEB SOLUTION NEB PRN (14:00)
[2019-11-23] MEDS ORDERED: POTASSIUM CHL 10 MEQ/WATER 50 ML IV PRN (14:00)
[2019-11-23] MEDS ORDERED: OxyCODONE HCL/ACETAMINOPHEN 5-325 MG TABLET PO PRN (14:00)
[2019-11-23 15:20] VITALS: BP 134/96
[2019-11-23] MEDS ORDERED: HEPARIN SODIUM,PORCINE 5,000 UNITS/ML VIAL SQ SCH (16:00)
[2019-11-23 20:16] VITALS: BP 135/91
[2019-11-23] MEDS ORDERED: DOCUSATE SODIUM 100 MG CAPSULE PO SCH (21:00)
[2019-11-23] MEDS ORDERED: CARVEDILOL 6.25 MG TABLET PO SCH (21:00)
[2019-11-24] MEDS ORDERED: ASPIRIN 81 MG CHEWABLE TABLET PO SCH (09:00)
[2019-11-24] MEDS ORDERED: FUROSEMIDE 40 MG/4 ML VIAL IVP SCH (09:00)
[2019-11-24] MEDS ORDERED: LISINOPRIL 5 MG TABLET PO SCH (09:00)
[2019-11-24] MEDS ORDERED: FAMOTIDINE 20 MG TABLET PO SCH (09:00)
== END 2019-11-23 21:50 | disposition left against medical advice (07) | DRG 140 ==
LOC: EMS 12:25 → 5S 14:00
PROVIDERS: ADMIT Internal Medicine; ATTEND Internal Medicine
DX: J44.1 Chronic obstructive pulmonary disease with (acute) exacerbation (principal); J18.9 Pneumonia, unspecified organism; I50.9 Heart failure, unspecified; F20.9 Schizophrenia, unspecified; D64.9 Anemia, unspecified; E11.9 Type 2 diabetes mellitus without complications; E78.5 Hyperlipidemia, unspecified; E87.6 Hypokalemia; J44.0 Chronic obstructive pulmonary disease with (acute) lower respiratory infection; F17.210 Nicotine dependence, cigarettes, uncomplicated; F41.9 Anxiety disorder, unspecified; Z88.8 Allergy status to other drugs, medicaments and biological substances; F17.200 Nicotine dependence, unspecified, uncomplicated; F43.10 Post-traumatic stress disorder, unspecified; Z87.440 Personal history of urinary (tract) infections; Z87.01 Personal history of pneumonia (recurrent); F12.90 Cannabis use, unspecified, uncomplicated; N39.0 Urinary tract infection, site not specified; Z91.19 Patient's noncompliance with other medical treatment and regimen; F19.10 Other psychoactive substance abuse, uncomplicated; Z20.828 Contact with and (suspected) exposure to other viral communicable diseases
CPT/HCPCS: 84132; 87040; 93005; 93306; 94644; 99291; J0456; J0696; J1644; J1940; J2930

== ENCOUNTER 2019-11-30 14:39 | Emergency (ER) | payer MEDICAID ==
[~2019-11-30] VITALS: Ht 160 cm; Wt 55.9 kg
[~2019-11-30 14:39] MED LIST changes: +ALBU8.5H8 IH; -ATOR20TA86 PO; +GABA-1181 PO; -GABA-531 PO; -LOSA25TA71 PO; -LURA40TA2 PO
[2019-11-30] MEDS ORDERED: ACETAMINOPHEN 500 MG TABLET PO ONE (17:15)
[2019-11-30] MEDS ORDERED: ALBUTEROL SULFATE HFA 90 MCG/PUFF 8 GM INHALER IH ONE (18:15)
[2019-11-30 18:23] LABS: GLUCOSE,POINT OF CARE 115 MG/DL (70-110)
[2019-11-30 18:44] LABS: HEMATOCRIT 51.7 % (36-46); MONOCYTES # (AUTO) 0.7 K/uL (0.1-1.0); NEUTROPHILS % (AUTO) 81.5 % (40.0-70.0)
[2019-11-30 18:51] LABS: ANION GAP 11 mmol/L (8-16); CALCIUM, TOTAL 9.9 mg/dL (8.8-10.5); CARBON DIOXIDE 27 mmol/L (22-29); CHLORIDE 97 mmol/L (98-107); CREATININE 1.61 mg/dL (0.60-1.30); GLOMERULAR FILTR. RATE CALC 40 mL/min (>60); GLUCOSE,RANDOM 109 mg/dL (70-110); POTASSIUM 4.9 mmol/L (3.5-5.1); SODIUM SERUM 135 mmol/L (136-145); UREA NITROGEN, BLOOD 33 mg/dL (7-18)
[2019-11-30 18:52] LABS: BASOPHILS % (AUTO) 0.4 % (0.0-2.0); EOSINOPHILS % (AUTO) 0.4 % (1.0-6.0); HEMOGLOBIN 16.9 g/dL (12.0-16.0); LYMPHOCYTES % (AUTO) 10.4 % (22.0-44.0); MEAN CORPUSCULAR HEMOGLOBIN 32.1 pg (26.0-34.0); MEAN CORPUSCULAR HGB CONC 32.8 G/dL (31.0-37.0); MEAN CORPUSCULAR VOLUME 98 fL (80-100); MONOCYTES % (AUTO) 7.3 % (2.0-9.0); RED BLOOD CELL COUNT(AUTO) 5.28 MIL/uL (4.00-5.20); RED CELL DISTRIBUTION WIDTH 15.1 % (11.5-14.5)
[2019-11-30 18:56] LABS: ALANINE AMINOTRANSFERASE 61 U/L (12-78); ALKALINE PHOSPHATASE 79 U/L (46-116); ASPARTATE AMINOTRANSFERASE 47 U/L (15-37); BILIRUBIN,TOTAL 0.8 mg/dL (0.1-1.0); TOTAL PROTEIN, SERUM 8.3 g/dL (6.4-8.2)
[2019-11-30 19:03] LABS: ALBUMIN 3.5 g/dL (3.4-5.0); LIPASE 361 U/L (73-393)
[2019-11-30 19:06] LABS: PLATELET COUNT (AUTO) 252 K/uL (150-450)
[2019-11-30 19:11] LABS: B-TYPE NATRIURETIC PEPTIDE 1010 pg/mL (0-100)
[2019-11-30] MEDS ORDERED: IBUPROFEN 800 MG TABLET PO ONE (19:45)
[2019-11-30] MEDS ORDERED: KETOROLAC TROMETHAMINE 30 MG/ML VIAL IM ONE (19:45)
[2019-11-30 20:46] LABS: APPEARANCE,URINE CLEAR (CLEAR); BILIRUBIN,URINE NEGATIVE (NEGATIVE); GLUCOSE, URINE (UA) NEGATIVE (NEGATIVE); KETONES,URINE NEGATIVE (NEGATIVE); LEUKOCYTE ESTERASE ,URINE NEGATIVE (NEGATIVE); NITRATE,URINE NEGATIVE (NEGATIVE); OCCULT BLOOD,URINE NEGATIVE (NEGATIVE); PH,URINE 5.5 (5.0-8.0); PROTEIN,URINE NEGATIVE (NEGATIVE); UROBILINOGEN,URINE 0.2 mg/dL (<=1.0)
[2019-11-30 20:50] LABS: AMPHET/METH SCREEN,URINE POSITIVE (NEGATIVE); BARBITURATE SCREEN, URINE NEGATIVE (NEGATIVE); BENZODIAZEPINES SCREEN,URINE NEGATIVE (NEGATIVE); CANNABINOID SCREEN,URINE NEGATIVE (NEGATIVE); COCAINE SCREEN,URINE NEGATIVE (NEGATIVE); METHADONE SCREEN, URINE NEGATIVE (NEGATIVE); OPIATE SCREEN,URINE NEGATIVE (NEGATIVE); PHENCYCLIDINE SCREEN,URINE NEGATIVE (NEGATIVE)
[2019-11-30 21:18] VITALS: BP 132/80
== END 2019-11-30 21:18 | disposition home or self-care (01) ==
LOC: EMS 14:45
DX: R10.84 Generalized abdominal pain (principal); F15.10 Other stimulant abuse, uncomplicated; R06.02 Shortness of breath; R05 Cough; F41.9 Anxiety disorder, unspecified; J45.909 Unspecified asthma, uncomplicated; E11.9 Type 2 diabetes mellitus without complications; F20.9 Schizophrenia, unspecified; F17.210 Nicotine dependence, cigarettes, uncomplicated; Z88.8 Allergy status to other drugs, medicaments and biological substances; Z79.82 Long term (current) use of aspirin
CPT/HCPCS: 36415; 71045; 74018; 80053; 80307; 81003; 82962; 83690; 83880; 84484; 85025; 93005; 94640; 99285; G0480; J3535